=== PATIENT | female | born 1965 | race Two or more races ===

== ENCOUNTER 2022-09-24 09:50 | Day surgery (SDC) | payer OTHER ==
[2022-09-11 15:03] VITALS: BMI 22.2
[~2022-09-24 09:50] MED LIST: CYCLOPENTOLATE HCL 1% OPHTH SOLN 2 ML BOTTLE OS SCH; KETOROLAC TROMETHAMINE 0.5% EYE DROP 1 DROP DROPS OS SCH; OFLOXACIN 0.3% OPHTHALMIC SOLUTION 5 ML BOTTLE OS SCH; PHENYLEPHRINE 2.5% OPHTH SOLN 15 ML BOTTLE OS SCH; TROPICAMIDE 1% OPHTH SOLN 15 ML BOTTLE OS SCH
[2022-09-24] MEDS ORDERED: BACITRACIN/POLYMYXIN OPH OINT 3.5 GM TUBE ONE (10:39)
[2022-09-24] MEDS ORDERED: BETAXOLOL HCL 0.25% OPHTHALMIC 10 ML DROPSBTL ONE (10:39)
[2022-09-24] MEDS ORDERED: EPI-SHUGARCAINE (EPINEPHRINE 0.025% & LIDOCAINE-PF 0.75%) 4ML ONE (10:39)
[2022-09-24] MEDS ORDERED: BSS (NA/CA/MG/K) BALANCED SALT SOLUTION OPHTH SOLN 15 ML BOTTLE ONE (10:40)
[2022-09-24] MEDS ORDERED: NEO/POLYMYX B SULF/DEXAMETH OPHTHALMIC 5ML BOTTLE ONE (10:40)
[2022-09-24] MEDS ORDERED: TETRACAINE 0.5% OPHTH SOLN 2 ML BOTTLE ONE (10:40)
[2022-09-24] MEDS ORDERED: POVIDONE-IODINE 5% OPHTHALMIC PREP 30 ML SOLUTION ONE (10:40)
[2022-09-24] MEDS ORDERED: TROPICAMIDE 1% OPHTH SOLN 15 ML BOTTLE ONE (11:01)
[2022-09-24] MEDS ORDERED: TROPICAMIDE 1% OPHTH SOLN 15 ML BOTTLE OS ONE ×6 (11:15→11:25)
[2022-09-24] MEDS ORDERED: CYCLOPENTOLATE HCL 1% OPHTH SOLN 2 ML BOTTLE OS ONE ×6 (11:15→11:25)
[2022-09-24] MEDS ORDERED: KETOROLAC TROMETHAMINE 0.5% EYE DROP 1 DROP DROPS OS ONE ×6 (11:15→11:25)
[2022-09-24] MEDS ORDERED: PHENYLEPHRINE 2.5% OPHTH SOLN 15 ML BOTTLE OS ONE ×6 (11:15→11:25)
[2022-09-24] MEDS ORDERED: OFLOXACIN 0.3% OPHTHALMIC SOLUTION 5 ML BOTTLE OS ONE ×6 (11:15→11:25)
[2022-09-24] MEDS ORDERED: ACETAMINOPHEN 325 MG TABLET (FP) PO PRN (13:09)
[2022-09-24] MEDS ORDERED: MIDAZOLAM HCL 2 MG/2 ML SINGLE DOSE VIAL ONE (13:43)
[2022-09-24 15:18] VITALS: BP 108/68; PULSE 65; RESP 19; TEMP 98.4
== END 2022-09-24 15:05 | disposition home or self-care (01) ==
LOC: FASU 09:50
PROVIDERS: ATTEND Ophthalmology
PROC: 08DK3ZZ Extraction of Left Lens, Percutaneous Approach (ICD-10-PCS; principal; 2022-09-24 13:57)
DX: H25.9 Unspecified age-related cataract (principal)
CPT/HCPCS: 66984; V2632

== ENCOUNTER 2022-10-29 11:27 | Day surgery (SDC) | payer OTHER ==
[2022-10-29] MEDS ORDERED: PHENYLEPHRINE 2.5% OPTHALMIC DROP 2ML BOTTLE ONE (11:55)
[2022-10-29] MEDS ORDERED: OFLOXACIN 0.3% OPHTHALMIC SOLUTION 5 ML BOTTLE ONE (11:55)
[2022-10-29] MEDS ORDERED: TROPICAMIDE 1% OPHTH SOLN 15 ML BOTTLE ONE (11:55)
[2022-10-29] MEDS ORDERED: KETOROLAC TROMETHAMINE 0.5% EYE DROP 1 DROP DROPS ONE (11:56)
[2022-10-29] MEDS ORDERED: CYCLOPENTOLATE HCL 1% OPHTH SOLN 2 ML BOTTLE ONE (11:56)
[2022-10-29] MEDS ORDERED: ACETAMINOPHEN 325 MG TABLET (FP) PO PRN (12:29)
[2022-10-29] MEDS: OFLOXACIN 0.3% OPHTHALMIC SOLUTION 5 ML BOTTLE OD SCH ×3 (12:45→12:55)
[2022-10-29] MEDS: KETOROLAC TROMETHAMINE 0.5% EYE DROP 1 DROP DROPS OD SCH ×3 (12:45→12:55)
[2022-10-29] MEDS: PHENYLEPHRINE 2.5% OPHTH SOLN 15 ML BOTTLE OD SCH ×3 (12:45→12:55)
[2022-10-29] MEDS: CYCLOPENTOLATE HCL 1% OPHTH SOLN 2 ML BOTTLE OD SCH ×3 (12:45→12:55)
[2022-10-29] MEDS: TROPICAMIDE 1% OPHTH SOLN 15 ML BOTTLE OD SCH ×3 (12:45→12:55)
[2022-10-29 13:01] VITALS: RESP 16; BMI 21.6
[2022-10-29] MEDS ORDERED: MIDAZOLAM HCL 2 MG/2 ML SINGLE DOSE VIAL ONE (14:14)
[2022-10-29 15:14] VITALS: TEMP 97.8
[2022-10-29 15:42] VITALS: BP 114/62; PULSE 65
== END 2022-10-29 15:44 | disposition home or self-care (01) ==
LOC: FASU 11:27
PROVIDERS: ATTEND Ophthalmology
PROC: 08RJ3JZ Replacement of Right Lens with Synthetic Substitute, Percutaneous Approach (ICD-10-PCS; principal; 2022-10-29 14:42)
DX: H25.9 Unspecified age-related cataract (principal)
CPT/HCPCS: 66984; V2632